=== PATIENT | female | born 2000 | race African-American/Black ===

== ENCOUNTER 2018-10-11 20:57 | Emergency (ER) | payer MEDICAID, OTHER ==
[~2018-10-11] VITALS: Ht 170.2 cm; Wt 53.0 kg
--- NOTE | 2018-10-11 21:15 | NUR ---
PT BIB [facility] TONIGHT AFTER SHE WAS FOUND AT A [place]ACE [place]. PT REPORTS SHE HAS BEEN DRINKING. PT SMELLS OF ETOH. PT HAS BEEN VOMITING. VS STABLE. PT IS A&O X3 4 NO ACUTE DISTRESS NOTED. WILL CONTINUE TO MONITOR.
--- NOTE | 2018-10-11 21:36 | NUR ---
DR JENKINS HAS UPDATED PATIENT. FRIENDS AT BEDSIDE. VS STABLE WILL CONTINUE TO MONITOR.
[2018-10-11] MEDS ORDERED: ONDANSETRON ODT 4 MG ONE (21:40)
[2018-10-11] MEDS ORDERED: ONDANSETRON ODT 4 MG PO ONE (22:00)
[2018-10-11 22:41] VITALS: BP 112/71
--- NOTE | 2018-10-11 22:41 | NUR ---
PT RESTING IN ROOM. FRIENDS AT BEDSIDE. CALL LIGHT IN PLACE. WILL CONTINUE TO MONITOR.
--- NOTE | 2018-10-11 23:05 | NUR ---
PT WAS ABLE TO DRESS SELF, PT IS A&O X4. FRIEND IS ABLE TO GIVE PATIENT A RIDE HOME. PT IS READY FOR DISCHRAGE
== END 2018-10-11 23:09 | disposition home or self-care (01) ==
LOC: ED 23:06
DX: F10.120 Alcohol abuse with intoxication, uncomplicated (principal)
CPT/HCPCS: 99283; Q0162